=== PATIENT | male | born 1935 | race Caucasian/White ===

== ENCOUNTER 2019-03-24 18:51 | Inpatient (IN) ==
[2019-03-24 19:31] LABS: INR 1.2; Prothrombin Time 13.3 Seconds (9.4-12.1)
[2019-03-24 19:36] LABS: Basophils % 0.4 %; Eosinophils # 0.3 K/mcL (0.0-0.6); Eosinophils % 3.4 %; Hematocrit 30.4 % (37.5-50.1); Hemoglobin 9.4 g/dL (12.9-16.9); Immature Granulocytes % 0.4 % (0-4); Lymphocytes # 1.8 K/mcL (0.6-4.6); Lymphocytes % 18.4 %; Mean Corpuscular HGB Conc 30.9 g/dL (31.6-35.5); Mean Corpuscular Hemoglobin 24.2 pg (28.0-33.3); Mean Corpuscular Volume 78.4 fL (83.0-100.0); Monocytes # 0.7 K/mcL (0.0-1.3); Monocytes % 7.7 %; Neutrophils # 6.7 K/mcL (1.6-8.9); Platelet Count 452 K/mcL (140-400); Red Blood Count 3.88 M/mcL (4.19-5.50); Red Cell Distribution Width 15.7 % (11.5-14.5); Segmented Neutrophils % 69.7 %; White Blood Count 9.7 K/mcL (4.3-11.1)
[2019-03-24 19:47] LABS: Alanine Aminotransferase 12 Units/L (7-52); Albumin 3.5 g/dL (3.5-5.7); Albumin/Globulin Ratio 0.8 (1.1-2.2); Alkaline Phosphatase 73 Units/L (34-104); Aspartate Amino Transferase 12 Units/L (13-39); BUN/Creatinine Ratio 35 (6-26); Bilirubin,Total 0.3 mg/dL (0.3-1.0); Blood Urea Nitrogen 38 mg/dL (8-23); Calcium 10.8 mg/dL (8.6-10.3); Carbon Dioxide 26 mEq/L (23-29); Chloride 98 mEq/L (98-107); Globulin 4.5 g/dL (2.4-3.5); Glucose 109 mg/dL (70-105); Magnesium 1.8 mg/dL (1.6-2.6); Osmolality,Calculated 288 (280-300); Potassium 4.6 mEq/L (3.5-5.1); Sodium 134 mEq/L (136-145); Troponin I < 0.03 ng/mL (< 0.04); eGFR For African Americans > 60 (> 60); eGFR For Non-African Americans > 60 (> 60)
[2019-03-24] MEDS ORDERED: Isovue-370 500 ML BOTTLE IVP ONE (20:10)
[2019-03-24] MEDS ORDERED: 0.9 % Sodium Chloride 500 ML IVC ONE (20:22)
[2019-03-24 20:51] LABS: Bilirubin,Urine Negative (Negative); Blood,Urine Moderate (Negative); Clarity,Urine Turbid (Clear); Color,Urine Yellow (Yellow); Glucose,Urine (UA) Normal (Normal); Ketones,Urine Negative (Negative); Leukocyte Esterase,Urine Large (Negative); Nitrite,Urine Negative (Negative); PH,Urine 5.5 pH Units (5.0-8.0); Protein,Urine 30 mg/dL (Neg-Trace); Specific Gravity,Urine 1.024 (1.010-1.025); Urobilinogen,Urine Normal (Normal)
[2019-03-24 20:55] LABS: WBC,Urine TNTC per hpf (0-3)
[2019-03-24 21:13] LABS: Bacteria,Urine Present per hpf (None-Few); RBC,Urine Present per hpf (0-3); Squamous Epithelial Cell,Urine Present per lpf (None-Few)
[2019-03-24] MEDS ORDERED: Naloxone 0.4 MG/ML INJ IVP PRN (21:41)
[2019-03-24] MEDS ORDERED: D5% in Water 1,000 ML IVC PRN (21:43)
[2019-03-24] MEDS ORDERED: *HR* Dextrose 50 % in Water (Syg) 50 ML SYRINGE IVP PRN (21:43)
[2019-03-24] MEDS ORDERED: Dextrose Gel 15 GM/37.5 ML TUBE PO PRN ×2 (21:43)
[2019-03-24] MEDS: 0.9 % Sodium Chloride 1,000 ML IVC SCH (23:25)
[2019-03-24] MEDS: cefTRIAXone 2,000 MG in Water for inj. (sterile) 20 ML IVP SCH (23:25)
[2019-03-25 06:04] LABS: Basophils % 0.5 %; Eosinophils # 0.3 K/mcL (0.0-0.6); Eosinophils % 3.7 %; Hematocrit 26.4 % (37.5-50.1); Hemoglobin 8.2 g/dL (12.9-16.9); Immature Granulocytes % 0.4 % (0-4); Lymphocytes # 1.3 K/mcL (0.6-4.6); Lymphocytes % 17.3 %; Mean Corpuscular HGB Conc 31.1 g/dL (31.6-35.5); Mean Corpuscular Hemoglobin 24.3 pg (28.0-33.3); Mean Corpuscular Volume 78.1 fL (83.0-100.0); Mean Platelet Volume 8.8 fL (9.4-12.4); Monocytes # 0.7 K/mcL (0.0-1.3); Monocytes % 9.6 %; Neutrophils # 5.2 K/mcL (1.6-8.9); Platelet Count 367 K/mcL (140-400); Red Blood Count 3.38 M/mcL (4.19-5.50); Red Cell Distribution Width 15.7 % (11.5-14.5); Segmented Neutrophils % 68.5 %; White Blood Count 7.6 K/mcL (4.3-11.1)
[2019-03-25 06:27] LABS: BUN/Creatinine Ratio 32 (6-26); Blood Urea Nitrogen 31 mg/dL (8-23); Calcium 9.9 mg/dL (8.6-10.3); Carbon Dioxide 27 mEq/L (23-29); Chloride 100 mEq/L (98-107); Glucose 226 mg/dL (70-105); Osmolality,Calculated 296 (280-300); Sodium 136 mEq/L (136-145); eGFR For African Americans > 60 (> 60); eGFR For Non-African Americans > 60 (> 60)
[2019-03-25 06:35] LABS: % Iron Saturation 6 % (20-55); Iron 14 mcg/dL (65-175); Transferrin 160 mg/dL (203-362)
[2019-03-25] MEDS: *HR* Heparin 5,000 UNIT/ML VIAL SQ SCH ×2 (06:38→13:25)
[2019-03-25 06:47] LABS: Ferritin 109 ng/mL (20-250)
[2019-03-25] MEDS: Insulin LISPRO 300 UNITS/3 ML VIAL SQ SCH ×4 (08:21→21:29)
[2019-03-25 09:10] LABS: Estimated Average Glucose 157 mg/dl
[2019-03-25] MEDS: 0.9 % Sodium Chloride 1,000 ML IVC SCH (13:26)
[2019-03-25] MEDS: Nicotine 7 MG PATCH.TD24 TD SCH (17:40)
[2019-03-25 19:28] LABS: Folate > 22.3 ng/mL (3.0-16.0); Vitamin B12 501 pg/mL (250-1100)
[2019-03-26] MEDS: 0.9 % Sodium Chloride 1,000 ML IVC SCH (05:00)
[2019-03-26 05:01] LABS: Basophils % 0.2 %; Eosinophils % 0.1 %; Hematocrit 30.2 % (37.5-50.1); Hemoglobin 9.7 g/dL (12.9-16.9); Immature Granulocytes % 0.7 % (0-4); Lymphocytes # 0.8 K/mcL (0.6-4.6); Lymphocytes % 5.5 %; Mean Corpuscular HGB Conc 32.1 g/dL (31.6-35.5); Mean Corpuscular Hemoglobin 24.9 pg (28.0-33.3); Mean Corpuscular Volume 77.4 fL (83.0-100.0); Mean Platelet Volume 9.2 fL (9.4-12.4); Monocytes # 0.8 K/mcL (0.0-1.3); Monocytes % 5.6 %; Neutrophils # 12.1 K/mcL (1.6-8.9); Platelet Count 451 K/mcL (140-400); Red Cell Distribution Width 15.8 % (11.5-14.5); Segmented Neutrophils % 87.9 %
[2019-03-26 05:02] LABS: White Blood Count 13.8 K/mcL (4.3-11.1)
[2019-03-26 05:17] LABS: BUN/Creatinine Ratio 26 (6-26); Blood Urea Nitrogen 25 mg/dL (8-23); Carbon Dioxide 23 mEq/L (23-29); Chloride 103 mEq/L (98-107); Glucose 265 mg/dL (70-105); Osmolality,Calculated 294 (280-300); Potassium 3.6 mEq/L (3.5-5.1); Sodium 135 mEq/L (136-145); eGFR For African Americans > 60 (> 60); eGFR For Non-African Americans > 60 (> 60)
[2019-03-26] MEDS ORDERED: MELATONIN PO SCH (09:00)
[2019-03-26] MEDS ORDERED: PYRIDOXINE HCL PO SCH (09:00)
[2019-03-26] MEDS ORDERED: [UNRECOGNIZED DRUG - OTHER] PO SCH (09:00)
[2019-03-26] MEDS: GuaiFENesin/Dextromethorphan TABLET PO SCH (10:48)
[2019-03-26] MEDS: Furosemide 40 MG TABLET PO SCH (10:48)
[2019-03-26] MEDS: Insulin LISPRO 300 UNITS/3 ML VIAL SQ SCH ×4 (10:49→22:06)
[2019-03-26] MEDS: Nicotine 7 MG PATCH.TD24 TD SCH (10:49)
[2019-03-26] MEDS: Insulin DETEMIR 100 UNIT/ML X5UNITS SQ SCH ×2 (10:49→22:07)
[2019-03-26] MEDS ORDERED: Gadolinium Contrast Agent (WT Based) IV PRN (11:31)
[2019-03-26] MEDS: Pyridoxine (B-6) 50 MG TABLET PO SCH (22:00)
[2019-03-26] MEDS: Melatonin 3 MG TABLET PO SCH (22:02)
[2019-03-26] MEDS: Mirtazapine 15 MG TABLET PO SCH (22:02)
[2019-03-26] MEDS: cefTRIAXone 2,000 MG in Water for inj. (sterile) 20 ML IVP SCH ×2 (22:16)
[2019-03-27] MEDS: 0.9 % Sodium Chloride 1,000 ML IVC SCH ×3 (00:20→20:25)
[2019-03-27] MEDS ORDERED: Lidocaine -MPF 2% 2 ML VIAL ONE (07:36)
[2019-03-27] MEDS ORDERED: Dexamethasone 4 MG/ML VIAL ONE (07:36)
[2019-03-27] MEDS ORDERED: Ondansetron 4 MG/2 ML VIAL ONE (07:36)
[2019-03-27] MEDS: Insulin LISPRO 300 UNITS/3 ML VIAL SQ SCH ×4 (07:52→20:26)
[2019-03-27] MEDS ORDERED: *HR* Propofol 200 MG/20 ML VIAL IVP ONE (08:30)
[2019-03-27] MEDS ORDERED: Famotidine 20 MG/2 ML VIAL ONE (08:47)
[2019-03-27] MEDS ORDERED: Albuterol 2.5 MG/3 ML NEBULIZER ONE (08:48)
[2019-03-27] MEDS ORDERED: *HR* PHENYLEPHRINE 1,000 MCG/10 ML SYRINGE IVP ONE ×2 (08:53→09:24)
[2019-03-27] MEDS ORDERED: *HR* EPINEPHrine 1 MG/10 ML SYRINGE INTRATRACH PRN (09:37)
[2019-03-27] MEDS: Furosemide 40 MG TABLET PO SCH (11:14)
[2019-03-27] MEDS: GuaiFENesin/Dextromethorphan TABLET PO SCH (11:14)
[2019-03-27] MEDS: Nicotine 7 MG PATCH.TD24 TD SCH (11:14)
[2019-03-27] MEDS: Insulin DETEMIR 100 UNIT/ML X5UNITS SQ SCH ×2 (11:16→20:29)
[2019-03-27 12:23] LABS: Appearance of Body Fluid Cloudy (Clear)
[2019-03-27 12:24] LABS: Volume of Body Fluid 18 mL
[2019-03-27] MEDS ORDERED: *HR* EPINEPHrine 1 MG/10 ML SYRINGE ONE (13:35)
[2019-03-27 15:42] LABS: Basophils % 0.1 %; Eosinophils % 0.1 %; Hematocrit 26.6 % (37.5-50.1); Hemoglobin 8.2 g/dL (12.9-16.9); Immature Granulocytes % 0.7 % (0-4); Lymphocytes # 0.4 K/mcL (0.6-4.6); Lymphocytes % 2.3 %; Mean Corpuscular HGB Conc 30.8 g/dL (31.6-35.5); Mean Corpuscular Hemoglobin 24.8 pg (28.0-33.3); Mean Corpuscular Volume 80.6 fL (83.0-100.0); Mean Platelet Volume 9.4 fL (9.4-12.4); Monocytes # 0.3 K/mcL (0.0-1.3); Monocytes % 1.8 %; Neutrophils # 15.9 K/mcL (1.6-8.9); Platelet Count 396 K/mcL (140-400); Red Cell Distribution Width 16.5 % (11.5-14.5); White Blood Count 16.7 K/mcL (4.3-11.1)
[2019-03-27 15:52] LABS: Calcium 10.3 mg/dL (8.6-10.3); Potassium 3.4 mEq/L (3.5-5.1)
[2019-03-27] MEDS ORDERED: Azithromycin 500 MG in 0.9 % Sodium Chloride 250 ML IVPB SCH (17:00)
[2019-03-27] MEDS: Mirtazapine 15 MG TABLET PO SCH (20:28)
[2019-03-27] MEDS: Pyridoxine (B-6) 50 MG TABLET PO SCH (20:28)
[2019-03-27] MEDS: Melatonin 3 MG TABLET PO SCH (20:28)
[2019-03-27] MEDS: cefTRIAXone 2,000 MG in Water for inj. (sterile) 20 ML IVP SCH (23:14)
[2019-03-28] MEDS: 0.9 % Sodium Chloride 1,000 ML IVC SCH ×3 (06:52→22:07)
[2019-03-28 07:08] LABS: Basophils % 0.1 %; Eosinophils % 0.2 %; Hematocrit 30.1 % (37.5-50.1); Hemoglobin 9.3 g/dL (12.9-16.9); Immature Granulocytes % 0.8 % (0-4); Lymphocytes # 1.2 K/mcL (0.6-4.6); Lymphocytes % 6.2 %; Mean Corpuscular HGB Conc 30.9 g/dL (31.6-35.5); Mean Corpuscular Hemoglobin 24.9 pg (28.0-33.3); Mean Corpuscular Volume 80.5 fL (83.0-100.0); Mean Platelet Volume 9.2 fL (9.4-12.4); Monocytes % 5.5 %; Neutrophils # 16.3 K/mcL (1.6-8.9); Platelet Count 446 K/mcL (140-400); Red Blood Count 3.74 M/mcL (4.19-5.50); Red Cell Distribution Width 16.8 % (11.5-14.5); Segmented Neutrophils % 87.2 %; White Blood Count 18.6 K/mcL (4.3-11.1)
[2019-03-28 07:30] LABS: Calcium 10.4 mg/dL (8.6-10.3); Potassium 3.3 mEq/L (3.5-5.1)
[2019-03-28] MEDS: Insulin LISPRO 300 UNITS/3 ML VIAL SQ SCH ×4 (07:37→22:08)
[2019-03-28] MEDS: Insulin DETEMIR 100 UNIT/ML X5UNITS SQ SCH ×2 (09:53→22:07)
[2019-03-28] MEDS: GuaiFENesin/Dextromethorphan TABLET PO SCH (09:57)
[2019-03-28] MEDS: Nicotine 7 MG PATCH.TD24 TD SCH (09:57)
[2019-03-28] MEDS: Furosemide 40 MG TABLET PO SCH (09:57)
[2019-03-28] MEDS: Piperacillin/Tazobactam 3.375 GM in 0.9 % Sodium Chloride Mini Bag 100 ML IVPB SCH ×2 (12:12→15:11)
[2019-03-28] MEDS: Melatonin 3 MG TABLET PO SCH (22:04)
[2019-03-28] MEDS: Pyridoxine (B-6) 50 MG TABLET PO SCH (22:04)
[2019-03-28] MEDS: Mirtazapine 15 MG TABLET PO SCH (22:05)
[2019-03-28] MEDS: Budesonide/Formoterol 160/4.5 1 PUFF INH IH SCH (22:20)
[2019-03-28] MEDS: Ipratropium/Albuterol Neb 3 ML IH SCH (22:20)
[2019-03-29 02:13] LABS: Basophils % 0.1 %; Eosinophils # 0.2 K/mcL (0.0-0.6); Eosinophils % 1.6 %; Hematocrit 28.2 % (37.5-50.1); Hemoglobin 8.6 g/dL (12.9-16.9); Immature Granulocytes % 0.8 % (0-4); Lymphocytes # 0.9 K/mcL (0.6-4.6); Lymphocytes % 8.2 %; Mean Corpuscular HGB Conc 30.5 g/dL (31.6-35.5); Mean Corpuscular Hemoglobin 24.4 pg (28.0-33.3); Mean Corpuscular Volume 79.9 fL (83.0-100.0); Mean Platelet Volume 9.2 fL (9.4-12.4); Monocytes # 0.8 K/mcL (0.0-1.3); Monocytes % 6.7 %; Neutrophils # 9.5 K/mcL (1.6-8.9); Platelet Count 416 K/mcL (140-400); Red Blood Count 3.53 M/mcL (4.19-5.50); Red Cell Distribution Width 16.9 % (11.5-14.5); Segmented Neutrophils % 82.6 %; White Blood Count 11.5 K/mcL (4.3-11.1)
[2019-03-29 02:23] LABS: BUN/Creatinine Ratio 27 (6-26); Blood Urea Nitrogen 35 mg/dL (8-23); Calcium 9.7 mg/dL (8.6-10.3); Carbon Dioxide 23 mEq/L (23-29); Chloride 107 mEq/L (98-107); Glucose 161 mg/dL (70-105); Osmolality,Calculated 295 (280-300); Potassium 3.4 mEq/L (3.5-5.1); Sodium 137 mEq/L (136-145); eGFR For African Americans > 60 (> 60); eGFR For Non-African Americans 52 (> 60)
[2019-03-29] MEDS: Piperacillin/Tazobactam 3.375 GM in 0.9 % Sodium Chloride Mini Bag 100 ML IVPB SCH ×2 (03:09→20:27)
[2019-03-29] MEDS: Ipratropium/Albuterol Neb 3 ML IH SCH ×4 (03:53→22:05)
[2019-03-29] MEDS: GuaiFENesin/Dextromethorphan TABLET PO SCH (08:27)
[2019-03-29] MEDS: Furosemide 40 MG TABLET PO SCH (08:27)
[2019-03-29] MEDS: Nicotine 7 MG PATCH.TD24 TD SCH (08:28)
[2019-03-29] MEDS: Insulin LISPRO 300 UNITS/3 ML VIAL SQ SCH ×4 (08:29→20:29)
[2019-03-29] MEDS: Insulin DETEMIR 100 UNIT/ML X5UNITS SQ SCH ×2 (08:30→20:30)
[2019-03-29] MEDS ORDERED: Aminoglycoside Consult 1 EACH MC ONE (08:39)
[2019-03-29] MEDS: Budesonide/Formoterol 160/4.5 1 PUFF INH IH SCH ×2 (10:14→22:05)
[2019-03-29] MEDS: 0.9 % Sodium Chloride 1,000 ML IVC SCH ×2 (10:35→20:27)
[2019-03-29] MEDS ORDERED: Piperacillin/Tazobactam 3.375 GM in 0.9 % Sodium Chloride Mini Bag 100 ML IVPB SCH (11:00)
[2019-03-29] MEDS: Gabapentin 300 MG CAPSULE PO SCH ×2 (14:40→20:30)
[2019-03-29] MEDS: *HR* Heparin 5,000 UNIT/ML VIAL SQ SCH (16:40)
[2019-03-29] MEDS: Mirtazapine 15 MG TABLET PO SCH (20:30)
[2019-03-29] MEDS: Pyridoxine (B-6) 50 MG TABLET PO SCH (20:30)
[2019-03-29] MEDS: Melatonin 3 MG TABLET PO SCH (20:30)
[2019-03-30] MEDS: Ipratropium/Albuterol Neb 3 ML IH SCH ×4 (04:17→21:22)
[2019-03-30] MEDS: *HR* Heparin 5,000 UNIT/ML VIAL SQ SCH ×2 (05:06→17:32)
[2019-03-30 05:07] LABS: Basophils % 0.2 %; Eosinophils # 0.4 K/mcL (0.0-0.6); Eosinophils % 4.6 %; Hematocrit 25.4 % (37.5-50.1); Hemoglobin 7.6 g/dL (12.9-16.9); Immature Granulocytes % 0.4 % (0-4); Lymphocytes % 11.6 %; Mean Corpuscular HGB Conc 29.9 g/dL (31.6-35.5); Mean Corpuscular Hemoglobin 24.8 pg (28.0-33.3); Mean Corpuscular Volume 82.7 fL (83.0-100.0); Mean Platelet Volume 9.1 fL (9.4-12.4); Monocytes # 0.8 K/mcL (0.0-1.3); Monocytes % 8.9 %; Neutrophils # 6.6 K/mcL (1.6-8.9); Platelet Count 324 K/mcL (140-400); Red Blood Count 3.07 M/mcL (4.19-5.50); Red Cell Distribution Width 17.2 % (11.5-14.5); Segmented Neutrophils % 74.3 %; White Blood Count 8.9 K/mcL (4.3-11.1)
[2019-03-30 05:31] LABS: BUN/Creatinine Ratio 25 (6-26); Blood Urea Nitrogen 30 mg/dL (8-23); Calcium 9.4 mg/dL (8.6-10.3); Carbon Dioxide 22 mEq/L (23-29); Chloride 111 mEq/L (98-107); Glucose 55 mg/dL (70-105); Magnesium 1.7 mg/dL (1.6-2.6); Osmolality,Calculated 294 (280-300); Phosphorous 2.4 mg/dL (2.7-4.5); Potassium 3.6 mEq/L (3.5-5.1); Sodium 140 mEq/L (136-145); eGFR For African Americans > 60 (> 60); eGFR For Non-African Americans 58 (> 60)
[2019-03-30] MEDS: Nicotine 7 MG PATCH.TD24 TD SCH (08:52)
[2019-03-30] MEDS: Insulin DETEMIR 100 UNIT/ML X5UNITS SQ SCH ×2 (08:52→20:56)
[2019-03-30] MEDS: Furosemide 40 MG TABLET PO SCH (08:53)
[2019-03-30] MEDS: Gabapentin 300 MG CAPSULE PO SCH ×3 (08:53→20:56)
[2019-03-30] MEDS: GuaiFENesin/Dextromethorphan TABLET PO SCH (08:53)
[2019-03-30] MEDS: Insulin LISPRO 300 UNITS/3 ML VIAL SQ SCH ×4 (09:02→20:57)
[2019-03-30] MEDS: Budesonide/Formoterol 160/4.5 1 PUFF INH IH SCH ×2 (09:59→21:22)
[2019-03-30] MEDS: Mirtazapine 15 MG TABLET PO SCH (20:56)
[2019-03-30] MEDS: Melatonin 3 MG TABLET PO SCH (20:56)
[2019-03-30] MEDS: Pyridoxine (B-6) 50 MG TABLET PO SCH (20:56)
[2019-03-31] MEDS: Ipratropium/Albuterol Neb 3 ML IH SCH ×3 (04:01→15:51)
[2019-03-31] MEDS: *HR* Heparin 5,000 UNIT/ML VIAL SQ SCH ×2 (05:27→17:52)
[2019-03-31 06:07] LABS: Hematocrit 25.9 % (37.5-50.1); Hemoglobin 7.7 g/dL (12.9-16.9)
[2019-03-31] MEDS: Nicotine 7 MG PATCH.TD24 TD SCH (09:35)
[2019-03-31] MEDS: Insulin LISPRO 300 UNITS/3 ML VIAL SQ SCH ×3 (09:35→17:50)
[2019-03-31] MEDS: Furosemide 40 MG TABLET PO SCH (09:36)
[2019-03-31] MEDS: GuaiFENesin/Dextromethorphan TABLET PO SCH (09:36)
[2019-03-31] MEDS: Gabapentin 300 MG CAPSULE PO SCH ×2 (09:36→14:07)
[2019-03-31] MEDS: Insulin DETEMIR 100 UNIT/ML X5UNITS SQ SCH (09:47)
[2019-03-31] MEDS: Budesonide/Formoterol 160/4.5 1 PUFF INH IH SCH (10:17)
[2019-03-31 15:25] VITALS: BP 116/70
== END 2019-03-31 19:02 | DRG 167 ==
LOC: 3ANU 18:51 → EMEROOARM 18:51 → SUATTDRO 21:22 → 3ANU 22:22 → SUATTDRO 03-26 13:52
PROVIDERS: ADMIT Internal Medicine; ATTEND Internal Medicine

== ENCOUNTER 2019-05-15 12:35 | Inpatient (IN) ==
[2019-05-15] MEDS ORDERED: 0.9 % Sodium Chloride 1,000 ML IVC ONE (12:45)
[2019-05-15] MEDS ORDERED: Piperacillin/Tazobactam 3.375 GM in Water for inj. (sterile) 20 ML IVP ONE (13:12)
[2019-05-15 13:25] LABS: Basophils % 0.2 %; Eosinophils # 0.1 K/mcL (0.0-0.6); Eosinophils % 0.8 %; Hematocrit 34.2 % (37.5-50.1); Hemoglobin 10.3 g/dL (12.9-16.9); Immature Granulocytes % 0.4 % (0-4); Lymphocytes # 1.4 K/mcL (0.6-4.6); Lymphocytes % 8.4 %; Mean Corpuscular HGB Conc 30.1 g/dL (31.6-35.5); Mean Corpuscular Hemoglobin 26.9 pg (28.0-33.3); Mean Corpuscular Volume 89.3 fL (83.0-100.0); Mean Platelet Volume 9.5 fL (9.4-12.4); Monocytes % 5.6 %; Neutrophils # 14.3 K/mcL (1.6-8.9); Platelet Count 365 K/mcL (140-400); Red Blood Count 3.83 M/mcL (4.19-5.50); Red Cell Distribution Width 20.5 % (11.5-14.5); Segmented Neutrophils % 84.6 %; White Blood Count 16.9 K/mcL (4.3-11.1)
[2019-05-15 14:06] LABS: Blood Urea Nitrogen > 130 mg/dL (8-23); Calcium 11.6 mg/dL (8.6-10.3); Carbon Dioxide 16 mEq/L (23-29); Chloride 117 mEq/L (98-107); Glucose 48 mg/dL (70-105); Potassium 6.9 mEq/L (3.5-5.1); Sodium 148 mEq/L (136-145); Thyroid Stimulating Hormone 5.066 mcIU/mL (0.340-5.600); Troponin I < 0.03 ng/mL (< 0.04); eGFR For African Americans 7 (> 60); eGFR For Non-African Americans 6 (> 60)
[2019-05-15] MEDS ORDERED: Calcium Gluconate 1,000 MG/10 ML VIAL IVP ONE (14:08)
[2019-05-15 14:13] LABS: Bilirubin,Urine Negative (Negative); Blood,Urine Large (Negative); Clarity,Urine Turbid (Clear); Color,Urine Dark Yellow (Yellow); Glucose,Urine (UA) Normal (Normal); Ketones,Urine Negative (Negative); Leukocyte Esterase,Urine Large (Negative); Nitrite,Urine Negative (Negative); PH,Urine 6.5 pH Units (5.0-8.0); Protein,Urine 100 mg/dL (Neg-Trace); Specific Gravity,Urine 1.016 (1.010-1.025); Urobilinogen,Urine Normal (Normal)
[2019-05-15 14:15] LABS: Bacteria,Urine None Seen per hpf (None-Few); Squamous Epithelial Cell,Urine Many per lpf (None-Few); WBC,Urine TNTC per hpf (0-3)
[2019-05-15 14:38] LABS: RBC,Urine 30-50 per hpf (0-3)
[2019-05-15] MEDS ORDERED: Dextrose Gel 15 GM/37.5 ML TUBE PO ONE (14:48)
[2019-05-15] MEDS ORDERED: *HR* Dextrose 50 % in Water (Syg) 50 ML SYRINGE IVP ONE (14:48)
[2019-05-15] MEDS ORDERED: Calcium Gluconate 1gm/50mL 1 GM/50 ML BAG IVPB ONE (14:49)
[2019-05-15] MEDS ORDERED: *HR* Dextrose 50 % in Water (Syg) 50 ML SYRINGE ONE (14:49)
[2019-05-15] MEDS: Calcium Gluconate 1gm/50mL 1 GM/50 ML BAG IVPB SCH ×2 (14:55→16:13)
[2019-05-15] MEDS ORDERED: Ondansetron 4 MG/2 ML VIAL IVP PRN (15:07)
[2019-05-15] MEDS ORDERED: Naloxone 0.4 MG/ML INJ IVP PRN (15:07)
[2019-05-15] MEDS ORDERED: *HR* LORazepam 2 MG/ML VIAL IVP PRN (15:10)
[2019-05-15] MEDS ORDERED: *HR* LORazepam Oral Conc 2 MG/ML PO PRN (15:10)
[2019-05-15] MEDS: Morphine Sulfate 2 MG/ML SYRINGE IVP PRN (19:59)
[2019-05-15] MEDS: Atropine Sulfate 1% 40 DROP/2 ML BOTTLE SL PRN (20:06)
[2019-05-16] MEDS: Morphine Sulfate 2 MG/ML SYRINGE IVP PRN ×4 (01:04→20:24)
[2019-05-16] MEDS: Atropine Sulfate 1% 40 DROP/2 ML BOTTLE SL PRN (08:42)
[2019-05-16 09:09] VITALS: BP 58/38
[2019-05-16] MEDS ORDERED: Scopolamine Patch 1.5 MG PATCH.TD72 TD SCH (10:45)
[2019-05-16] MEDS: *HR* LORazepam 2 MG/ML VIAL IVP PRN ×2 (11:09→22:09)
[2019-05-17] MEDS: Morphine Sulfate 2 MG/ML SYRINGE IVP PRN ×2 (00:26→03:27)
[2019-05-17] MEDS: *HR* LORazepam 2 MG/ML VIAL IVP PRN (04:28)
== END 2019-05-17 08:30 | disposition expired | DRG 871 ==
LOC: 2NNU 12:35 → EMEROOARM 12:35 → 2NNU 15:41 → SUATTDRO 15:41 → 2NNU 17:29
PROVIDERS: ADMIT Internal Medicine; ATTEND Internal Medicine